=== PATIENT | female | born 1945 | race Caucasian/White ===

== ENCOUNTER 2017-09-15 15:09 | Emergency (ER) | payer MEDICARE, BC ==
[2017-09-15 15:18] VITALS: BP 155/67
--- NOTE | 2017-09-15 15:22 | EDM.PDOC ---
ED HPI GENERAL MEDICAL PROBLEM - General Chief Complaint: Chest Pain Stated Complaint: CHEST PAIN Time Seen by Provider: 09/15/17 15:20 Source of Information: Reports: Patient - History of Present Illness INITIAL COMMENTS - FREE TEXT/NARRATIVE: Patient is here for evaluation for left-sided chest pain intermittently for several months. She has had this several times this week including yesterday and now earlier this option in today. She states that it is a stabbing feeling behind her left breast and then discomfort and almost feels "hot". She denies any chest pressure, has not had any associated nausea or diaphoresis with this. She states the episodes only last seconds Nai resolve. X line patient does have history of hypertension and hyperlipidemia, denies any history of CAD. Patient has not been more active recently has not overused this side. Patient does have a diagnosis of fibromyalgia. Patient is not currently having any pain or abnormal symptoms. left breast Pain Score (Numeric/FACES): 0 - Related Data Allergies Allergy/AdvReac Type Severity Reaction Status Date / Time carisoprodol [From Soma] Allergy Hives Verified 09/15/17 15:18 Penicillins Allergy Hives Verified 09/15/17 15:18 sulfabenzamide Allergy Dizziness Verified 09/15/17 15:18 Home Meds: Home Meds Metoprolol Tartrate [Lopressor] 1 tab PO DAILY 08/12/14 [History] Gabapentin 1 tab PO TID 06/12/15 [History] Pravastatin [Pravachol] 1 tab PO DAILY 06/12/15 [History] metFORMIN [Glucophage XR] 500 mg PO BID 06/12/15 [History] Calcium Carbonate/Vitamin D3 [Os-Bear 500+D] 1 each PO DAILY 09/18/15 [History] Cholecalciferol (Vitamin D3) [Vitamin D3] 1,000 units PO DAILY 09/18/15 [History ] Cranberry Ext/C/L. Sporogenes [Azo Cranberry] 1 each PO DAILY 09/18/15 [History] Cyclobenzaprine [Flexeril] 5 mg PO BID PRN 09/18/15 [History] Fish Oil/[place]-3 Fatty Acids [Fish Oil 1,000 MG] 1 each PO DAILY 09/18/15 [ History] Ibuprofen [Motrin] 800 mg PO Q6H PRN 09/18/15 [History] Insulin Glarg,Human.Rec.Analog [Lantus] 42 unit SQ BEDTIME 09/18/15 [History] Insulin Lispro [HumaLOG] 0 unit SUBCUT QIDACANDBED 09/18/15 [History] Levothyroxine [Synthroid] 88 mcg PO DAILY 09/18/15 [History] Lisinopril 5 mg PO DAILY 09/18/15 [History] Sennosides [Senna] 8.6 mg PO BID PRN 09/18/15 [History] Past Medical History HEENT History: Reports: Impaired Vision Other HEENT History: glasses, partials Cardiovascular History: Reports: High Cholesterol, Hypertension Respiratory History: Reports: Sleep Apnea Gastrointestinal History: Reports: Diverticulosis Other Gastrointestinal History: rectal pain, spleen removal Other OB/BYN History: post menopausal bleeding, breast lumpectomy Musculoskeletal History: Reports: Fibromyalgia Neurological History: Reports: Vertigo Endocrine/Metabolic History: Reports: Diabetes, Type II, Hypothyroidism, Obesity /BMI 30+ Other Immunologic History: spleen removal Oncologic (Cancer) History: Reports: Breast - Past Surgical History HEENT Surgical History: Reports: Cataract Surgery Musculoskeletal Surgical History: Reports: Arthroscopic Knee, Knee Replacement Social & Family History - Tobacco Use Smoking Status *Q: Former Smoker Month Tobacco Last Used: 1989 - Recreational Drug Use Recreational Drug Use: No Drug Use in Last 12 Months: No ED ROS GENERAL - Review of Systems Review Of Systems: See Below Constitutional: Denies: Fever, Chills, Malaise, Weakness, Fatigue HEENT: Reports: No Symptoms Respiratory: Reports: No Symptoms Cardiovascular: Reports: Chest Pain, Blood Pressure Problem. Denies: Claudication, Dyspnea on Exertion, Edema, Lightheadedness Endocrine: Denies: Fatigue GI/Abdominal: Reports: No Symptoms Musculoskeletal: Reports: No Symptoms Skin: Reports: No Symptoms Neurological: Reports: No Symptoms Psychiatric: Reports: No Symptoms ED EXAM, GENERAL - Physical Exam Exam: See Below General Appearance: Alert, WD/WN, No Apparent Distress Eye Exam: Bilateral Eye: PERRL Ears: Normal External Exam, Normal Canal, Hearing Grossly Normal, Normal TMs Nose: Normal Inspection Throat/Mouth: Normal Inspection, Normal Oropharynx Head: Atraumatic, Normocephalic Neck: Normal Inspection, Supple, Non-Tender Respiratory/Chest: No Respiratory Distress, Lungs Clear, Normal Breath Sounds Cardiovascular: Normal Peripheral Pulses, Regular Rate, Rhythm, No Murmur GI/Abdominal: Normal Bowel Sounds, Soft, Non-Tender Back Exam: Normal Inspection Neurological: Alert, Oriented, No Motor/Sensory Deficits, Other Psychiatric: Normal Affect Skin Exam: Warm, Dry, Intact Lymphatic: No Adenopathy EKG INTERPRETATION EKG Date: 09/15/17 Time: 15:17 Rhythm: NSR Rate (Beats/Min): 78 Course - Vital Signs Last Recorded V/S: Last Vital Signs Temp 97 F 09/15/17 15:11 Pulse 81 09/15/17 15:11 Resp 20 09/15/17 15:11 BP 155/67 H 09/15/17 15:11 Pulse Ox - Orders/Labs/Meds Orders: Active Orders 24 hr Category Date Time Status EKG 12 Lead [EKG Documentation Completion] [RC] STAT Care 09/15/17 15:20 Active UA W/MICROSCOPIC [URIN] Stat Lab 09/15/17 16:40 Results Labs: Laboratory Tests 09/15/17 09/15/17 09/15/17 Range/Units 15:42 15:42 16:40 WBC 14.74 H (3.98-10.04) K/mm3 RBC 4.30 (3.98-5.22) M/mm3 Hgb 12.9 (11.2-15.7) gm/L Hct 39.7 (34.1-44.9) % MCV 92.3 (79.4-94.8) fl MCH 30.0 (25.6-32.2) pg MCHC 32.5 (32.2-35.5) g/dl RDW Std Deviation 47.2 H (36.4-46.3) fL Plt Count 276 (182-369) K/mm3 MPV 11.1 (9.4-12.3) fl Neutrophils % (Manual) 44 (40-60) % Band Neutrophils % 0 (0-10) % Lymphocytes % (Manual) 46 H (20-40) % Atypical Lymphs % 0 % Monocytes % (Manual) 7 (2-10) % Eosinophils % (Manual) 3 (0.7-5.8) % Basophils % (Manual) 0 L (0.1-1.2) Platelet Estimate Adequate Plt Morphology Comment Normal RBC Morph Comment Normal Sodium 138 (136-145) mEq/L Potassium 4.4 (3.5-5.1) mEq/L Chloride 103 (98-107) mEq/L Carbon Dioxide 23 (21-32) mEq/L Anion Gap 16.4 H (5-15) BUN 16 (7-18) mg/dL Creatinine 1.2 H (0.55-1.02) mg/dL Est Cr Clr Drug Dosing 40.25 mL/min Estimated GFR (MDRD) 44 (>60) mL/min BUN/Creatinine Ratio 13.3 L (14-18) Glucose 162 H (83-115) mg/dL Calcium 9.2 (8.5-10.1) mg/dL Total Bilirubin 0.3 (0.2-1.0) mg/dL AST 24 (15-37) U/L ALT 33 (14-59) U/L Alkaline Phosphatase 102 (46-116) U/L Troponin I < 0.017 (0.00-0.056) ng/mL C-Reactive Protein 2.3 H* (<1.0) mg/dL Total Protein 7.5 (6.4-8.2) g/dl Albumin 3.4 (3.4-5.0) g/dl Globulin 4.1 gm/dL Albumin/Globulin Ratio 0.8 L (1-2) Urine Color Yellow (Yellow) Urine Appearance Clear (Clear) Urine pH 6.5 (5.0-8.0) Ur Specific [place] 1.010 (1.005-1.030) Urine Protein Negative (Negative) Urine Glucose (UA) Negative (Negative) Urine Ketones Negative (Negative) Urine Occult Blood Negative (Negative) Urine Nitrite Negative (Negative) Urine Bilirubin Negative (Negative) Urine Urobilinogen 0.2 (0.2-1.0) Ur Leukocyte Esterase Negative (Negative) - Radiology Interpretation Free Text/Narrative:: Chest x-ray demonstrates: Heart size appears within normal limits. Tortuous thoracic aorta is seen. Lungs are clear. Degenerative changes in the spine. Impression: #1 nothing acute is identified on 2 view CXR. - Re-Assessments/Exams Free Text/Narrative Re-Assessment/Exam: Patient presents with atypical left-sided chest pain, exam unremarkable and patient not having current pain. Per her description I question if this is actually coming more from the breast tissue. WBC elevated at 14,740, with 44% neutrophils and no bands. Patient has had previous splenectomy and has chronic elevation of her will white count. Patient does have a history of breast cancer on the right, did have recent abnormal mammogram on the left. Question if this could possibly be contributing to her pain. Patient is scheduled to have an ultrasound of this on an outpatient basis. She will follow-up with her primary provider for this as well as or certainly can return to the emergency room if any worsening in her symptoms. 09/15/17 17:18 Departure - Departure Time of Disposition: 17:22 Disposition: Home, Self-Care 01 Condition: Good Clinical Impression: Atypical chest pain Referrals: Wyatt Alvarez MD [Primary Care Provider] - Forms: ED Department Discharge Additional Instructions: You were evaluated in the emergency room for chest pain. Your EKG and heart markers were normal. I recommend that you follow up with your primary provider in the next 2 weeks, for your emergency room visit as well as your previous abnormal mammogram. Certainly if anything should worsen he may return to the emergency room. - My Orders Last 24 Hours: My Active Orders 09/15/17 15:20 EKG 12 Lead [EKG Documentation Completion] [RC] STAT 09/15/17 16:40 UA W/MICROSCOPIC [URIN] Stat - Assessment/Plan Last 24 Hours: My Active Orders 09/15/17 15:20 EKG 12 Lead [EKG Documentation Completion] [RC] STAT 09/15/17 16:40 UA W/MICROSCOPIC [URIN] Stat
--- NOTE | 2017-09-15 16:14 | CR ---
Chest: Two views of the chest were obtained. Comparison: Prior chest x-ray of 01/27/13. Heart size appears within normal limits. Tortuous thoracic aorta is seen. Lungs are clear. Degenerative change is scattered within the spine. Impression: 1. Nothing acute is identified on two-view chest x-ray. Diagnostic code #2
== END 2017-09-15 17:35 | disposition home or self-care (01) ==
LOC: JD.ED 15:09
DX: R07.89 Other chest pain (principal); E78.00 Pure hypercholesterolemia, unspecified; I10 Essential (primary) hypertension; E06.9 Thyroiditis, unspecified; E66.9 Obesity, unspecified; E11.9 Type 2 diabetes mellitus without complications; Z79.4 Long term (current) use of insulin; Z87.891 Personal history of nicotine dependence; Z88.0 Allergy status to penicillin; Z88.2 Allergy status to sulfonamides; Z79.899 Other long term (current) drug therapy
CPT/HCPCS: 36415; 71046; 71046-26; 80053; 81001; 84484; 85025; 86140; 93005; 93010; 99284; 99285-25

== ENCOUNTER 2019-04-27 11:39 | Emergency (ER) | payer MEDICARE, BC ==
[2019-04-27 11:57] VITALS: BP 159/74
--- NOTE | 2019-04-27 13:20 | EDM.PDOC ---
ED HPI GENERAL MEDICAL PROBLEM - General Chief Complaint: Lower Extremity Injury/Pain Stated Complaint: [facility] SENT OVER TO CHECK FOR BLOOD CLOT Time Seen by Provider: 04/27/19 13:20 - History of Present Illness INITIAL COMMENTS - FREE TEXT/NARRATIVE: 73-year-old female presents emergency room for a lower leg Doppler to be sure she does not have a blood clot in the left leg. Patient was sent over from [facility] with concerns of having a blood clot in her left lower leg. The patient is on Plavix and aspirin not for prevention of blood clots but she recently had a three-vessel bypass done. The patient complains of pain in her leg. She's not having any breathing difficulties or shortness of breath. She's noticed any fevers or chills. Left Lower Leg Pain Score (Numeric/FACES): 2 - Related Data Allergies Allergy/AdvReac Type Severity Reaction Status Date / Time carisoprodol [From Soma] Allergy Hives Verified 03/10/19 11:59 Penicillins Allergy Hives Verified 03/10/19 11:59 sulfabenzamide Allergy Dizziness Verified 03/10/19 11:59 Home Meds: Home Meds Metoprolol Tartrate [Lopressor] 25 tab PO DAILY 08/12/14 [History] Gabapentin 1 tab PO TID 06/12/15 [History] metFORMIN [Glucophage XR] 500 mg PO BID 06/12/15 [History] Levothyroxine [Synthroid] 100 mcg PO DAILY 09/18/15 [History] Insulin Aspart [NovoLOG] 15 unit SQ TID 03/10/19 [History] Insulin Degludec [Tresiba] 60 unit SQ DAILY 03/10/19 [History] Losartan [Cozaar] 100 mg PO DAILY 03/10/19 [History] Pravastatin [Pravachol] 40 mg PO BEDTIME 03/10/19 [History] Past Medical History HEENT History: Reports: Impaired Vision Other HEENT History: glasses, partials Cardiovascular History: Reports: Bypass, High Cholesterol, Hypertension Other Cardiovascular History: 3 vessel 2019 Respiratory History: Reports: Sleep Apnea Other Respiratory History: c-pap Gastrointestinal History: Reports: Diverticulosis Other Gastrointestinal History: rectal pain, spleen removal Other [employer] History: post menopausal bleeding, breast lumpectomy Musculoskeletal History: Reports: Fibromyalgia Neurological History: Reports: Vertigo Endocrine/Metabolic History: Reports: Diabetes, Type II, Hypothyroidism, Obesity /BMI 30+ Hematologic History: Reports: Anticoagulation Therapy Other Immunologic History: spleen removal Oncologic (Cancer) History: Reports: Breast Other Oncologic History: lumpectomy - Past Surgical History HEENT Surgical History: Reports: Cataract Surgery Female Surgical History: Reports: D&C Musculoskeletal Surgical History: Reports: Arthroscopic Knee, Knee Replacement Social & Family History - Family History Family Medical History: Noncontributory - Tobacco Use Smoking Status *Q: Never Smoker - Caffeine Use Caffeine Use: Reports: Coffee, Soda - Recreational Drug Use Recreational Drug Use: No Review of Systems - Review of Systems Review Of Systems: Unable To Obtain Constitutional: Reports: No Symptoms Eyes: Reports: No Symptoms Ears: Reports: No Symptoms Nose: Reports: No Symptoms Mouth/Throat: Reports: No Symptoms Respiratory: Reports: No Symptoms Cardiovascular: Reports: No Symptoms GI/Abdominal: Reports: No Symptoms Genitourinary: Reports: No Symptoms Neurological: Reports: No Symptoms ED EXAM, GENERAL - Physical Exam Exam: See Below General Appearance: Alert, No Apparent Distress, Other (I didn't have the opportunity to examine the patient before her ultrasound was done as the emergency room is very busy nursing kindly ordered the ultrasound knowing that that's what she was sent over for.) Head: Atraumatic, Normocephalic Neck: Normal Inspection, Supple, Non-Tender, Full Range of Motion Respiratory/Chest: No Respiratory Distress, Lungs Clear, Normal Breath Sounds Cardiovascular: Regular Rate, Rhythm, No JVD, No Murmur GI/Abdominal: Normal Bowel Sounds, Soft, Non-Tender Extremities: Other (Yaritza several lower leg show some mild edema. She has tenderness in her left calf but this is minimal there is no significant swelling difference between the left compared to the right there is no erythema noted. Most of her pain is actually around her knee and upper thigh over the outer area over the iliotibial band.) Neurological: Alert, Oriented, Normal Cognition Psychiatric: Normal Affect, Normal Mood Skin Exam: Warm, Dry, Intact Course - Vital Signs Last Recorded V/S: Last Vital Signs Temp 36.3 C 04/27/19 11:55 Pulse 74 04/27/19 11:55 Resp 20 04/27/19 11:55 BP 159/74 H 04/27/19 11:55 Pulse Ox 94 L 04/27/19 11:55 - Re-Assessments/Exams Free Text/Narrative Re-Assessment/Exam: 04/27/19 16:20 Patient was sent over from the walk-in clinic with profound concerns about her having a blood clot in left leg. Patient had ultrasound done which was unrevealing for blood clot. On my examination think she has iliotibial band syndrome which doesn't by itself explain calf discomfort. But that's where I could find on exam her calf is not swollen not read. Patient is on Plavix and aspirin. The patient will use Tylenol up to 2000 mg a day for the discomfort Departure - Departure Time of Disposition: 16:21 Disposition: Home, Self-Care 01 Clinical Impression: Leg pain, left, Iliotibial band syndrome affecting left lower leg - Discharge Information Instructions: Iliotibial Band Syndrome Referrals: Wyatt Alvarez MD [Primary Care Provider] - Forms: ED Department Discharge Additional Instructions: Return to emergency room if any questions problems worsening symptoms. Use Tylenol for your pain thousand milligrams 3 times a day or 650 mg 4 times a day.
--- NOTE | 2019-04-27 14:20 | US ---
Left lower extremity deep venous ultrasound: Duplex and color flow imaging was obtained of the left common femoral, superficial femoral, proximal greater saphenous, popliteal, posterior tibial and peroneal veins. Proximal left greater saphenous vein also evaluated as well as the right common femoral vein. Normal phasic flow, augmentation and compression are seen. Impression: 1. No evidence of deep venous thrombosis within left lower extremity or right common femoral vein. Diagnostic code #1
== END 2019-04-27 16:38 | disposition home or self-care (01) ==
LOC: JD.ED 11:39
DX: M76.32 Iliotibial band syndrome, left leg (principal); I10 Essential (primary) hypertension; E11.9 Type 2 diabetes mellitus without complications; E78.00 Pure hypercholesterolemia, unspecified; E03.9 Hypothyroidism, unspecified; E66.9 Obesity, unspecified; Z68.41 Body mass index [BMI] 40.0-44.9, adult; Z79.01 Long term (current) use of anticoagulants; Z79.4 Long term (current) use of insulin; Z79.899 Other long term (current) drug therapy; Z88.0 Allergy status to penicillin; Z88.2 Allergy status to sulfonamides; Z88.8 Allergy status to other drugs, medicaments and biological substances
CPT/HCPCS: 93971-26-LT; 93971-LT; 99283-25